=== PATIENT | male | born 1990 | race Caucasian/White ===

== ENCOUNTER 2018-05-14 10:30 | Emergency (ER) | payer SELFPAY ==
[~2018-05-14] VITALS: Ht 182.9 cm; Wt 70.3 kg
[2018-05-14] MEDS ORDERED: IBUPROFEN 400 MG TAB PO ONE (11:15)
[2018-05-14] MEDS ORDERED: TETANUS/DIPHTHERIA TOX ADULT 0.5 ML SYR IM ONE (11:15)
[2018-05-14] MEDS ORDERED: BUPIVACAINE HCL 0.25% 10ML MPF VIAL INJ ONE (16:15)
== END 2018-05-14 13:30 | disposition home or self-care (01) ==
LOC: FSED 10:30
DX: S61.211A Laceration without foreign body of left index finger without damage to nail, initial encounter (principal); W26.8XXA Contact with other sharp object(s), not elsewhere classified, initial encounter; Y92.000 Kitchen of unspecified non-institutional (private) residence as the place of occurrence of the external cause
CPT/HCPCS: 90471; 90714; 99284